=== PATIENT | male | born 2000 | race Caucasian/White ===

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

== ENCOUNTER 2018-02-01 15:39 | Emergency (ER) | payer SELFPAY ==
[~2018-02-01] VITALS: Ht 180.3 cm; Wt 70.0 kg
[2018-02-01 16:01] LABS: IMMATURE GRANULOCYTES 0.1 % (0.0-1.0); MEAN CELL VOLUME 83.9 fL CALC (80.0-100.0); MEAN CORPUSCULAR HGB 29.1 pG CALC (26.0-32.0); MEAN CORPUSCULAR HGB CONC 34.7 g/L CALC (32.0-36.0); NEUT# 4.18 thou/uL (1.82-7.42); RED BLOOD COUNT 5.84 mill/uL (4.70-6.10); RED CELL DISTRI WIDTH 12.3 % (11.5-15.5)
[2018-02-01 16:28] LABS: ALBUMIN 5.6 g/dL (3.2-5.0); BILIRUBIN, TOTAL 0.8 mg/dL (0.0-1.4); BUN 13 mg/dL (8-21); BUN/CREATININE RATIO 12 (12-20 (CALC)); CARBON DIOXIDE 23 mmol/l (22-30); CHLORIDE 102 mmol/l (95-108); GFR > 60 ML/MIN (>=60 (CALC)); GFR FOR AFR.AMER. > 60 ML/MIN (>=60 (CALC)); LIPASE 55 u/l (23-300); SGOT/AST 25 u/l (17-59); SGPT/ALT 25 u/l (21-72); SODIUM 143 mmol/l (137-146); TOTAL PROTEIN 8.4 g/dL (6.3-8.2)
[2018-02-01 16:35] LABS: ALKALINE PHOSPHATASE 86 u/l (38-126); ANION GAP 22 (6-22 (CALC)); ETHYL ALCOHOL 0 mg/dl (0-30); POTASSIUM 3.6 mmol/l (3.5-5.1)
[2018-02-01 17:43] VITALS: BP 154/80
[2018-02-01 17:51] LABS: COCAINE NEGATIVE (NEGATIVE); TETRAHYDROCANNABIONOL POSITIVE (NEGATIVE)
[2018-02-01 17:52] LABS: BARBITURATES NEGATIVE (NEGATIVE); OXCYCODONE NEGATIVE (NEGATIVE); TRICYLIC ANTIDEPRESSANTS NEGATIVE (NEGATIVE)
[2018-02-01 18:51] LABS: METHADONE NEGATIVE (NEGATIVE)
== END 2018-02-01 17:44 | disposition short-term general hospital (02) | DRG 918 ==
LOC: ED 15:39
PROVIDERS: Family Medicine
PROC: 0BH17EZ Insertion of Endotracheal Airway into Trachea, Via Natural or Artificial Opening (ICD-10-PCS; principal; 2018-02-01)
PROC: 02HV33Z Insertion of Infusion Device into Superior Vena Cava, Percutaneous Approach (ICD-10-PCS; 2018-02-01)
PROC: 0T9B70Z Drainage of Bladder with Drainage Device, Via Natural or Artificial Opening (ICD-10-PCS; 2018-02-01)
PROC: 0D9670Z Drainage of Stomach with Drainage Device, Via Natural or Artificial Opening (ICD-10-PCS; 2018-02-01)
DX: T47.0X2A Poisoning by histamine H2-receptor blockers, intentional self-harm, initial encounter (principal); K92.2 Gastrointestinal hemorrhage, unspecified; F32.9 Major depressive disorder, single episode, unspecified; T43.222A Poisoning by selective serotonin reuptake inhibitors, intentional self-harm, initial encounter; T45.4X2A Poisoning by iron and its compounds, intentional self-harm, initial encounter; T43.592A Poisoning by other antipsychotics and neuroleptics, intentional self-harm, initial encounter; R11.10 Vomiting, unspecified; Y92.009 Unspecified place in unspecified non-institutional (private) residence as the place of occurrence of the external cause
CPT/HCPCS: J2354; S0164

== ENCOUNTER 2018-12-16 08:52 | Emergency (ER) | payer SELFPAY ==
[~2018-12-16] VITALS: Ht 180.3 cm; Wt 69.2 kg
[2018-12-16 09:56] LABS: HEMATOCRIT 45.5 % (39.0-50.0); HEMOGLOBIN 15.4 g/dl (14.0-18.0); IMMATURE GRANULOCYTES 0.3 % (0.0-5.0); MEAN CORPUSCULAR HGB 29.1 pG CALC (26.0-32.0); MEAN CORPUSCULAR HGB CONC 33.8 g/L CALC (32.0-36.0); NEUT# 12.85 thou/uL (1.82-7.42); RED BLOOD COUNT 5.29 mill/uL (4.70-6.10); RED CELL DISTRI WIDTH 12.3 % (11.5-15.5)
[2018-12-16 10:13] LABS: ANION GAP 16 (6-22 (CALC)); BUN 18 mg/dL (9-20); BUN/CREATININE RATIO 20 (12-20 (CALC)); CARBON DIOXIDE 26 mmol/l (22-30); CHLORIDE 102 mmol/l (95-108); CREATININE 0.9 mg/dL (0.7-1.3); GFR > 60 ML/MIN (>=60 (CALC)); GFR FOR AFR.AMER. > 60 ML/MIN (>=60 (CALC)); POTASSIUM 4.1 mmol/l (3.5-5.1); SODIUM 141 mmol/l (137-146)
[2018-12-16] MEDS ORDERED: BACTRIM DS1 TAB PO (11:22)
[2018-12-16] MEDS ORDERED: CEPHALEXIN500 M1 PO (11:22)
[2018-12-16 11:34] VITALS: BP 127/77
== END 2018-12-16 11:34 | disposition home or self-care (01) | DRG 603 ==
LOC: ED 08:52
PROVIDERS: Family Medicine
DX: L03.114 Cellulitis of left upper limb (principal); F19.90 Other psychoactive substance use, unspecified, uncomplicated; F32.9 Major depressive disorder, single episode, unspecified; F17.210 Nicotine dependence, cigarettes, uncomplicated

== ENCOUNTER 2020-10-26 07:55 | Emergency (ER) | payer OTHER ==
[~2020-10-26] VITALS: Ht 180.3 cm; Wt 75.0 kg
[~2020-10-26 07:55] MED LIST changes: +CEPHALEXIN500 M1 PO
[2020-10-26 08:33] LABS: HEMATOCRIT 46.2 % (39.0-50.0); IMMATURE GRANULOCYTES 0.4 % (0.0-5.0); MEAN CORPUSCULAR HGB 28.2 pG CALC (26.0-32.0); MEAN CORPUSCULAR HGB CONC 32.5 g/dL CAL (32.0-36.0); NEUT# 2.66 thou/uL (1.82-7.42); RED BLOOD COUNT 5.31 mill/uL (4.70-6.10); RED CELL DISTRI WIDTH 12.1 % (11.5-15.5)
[2020-10-26 08:47] LABS: ALBUMIN 4.5 g/dL (3.2-5.0); ALKALINE PHOSPHATASE 53 u/l (38-126); ANION GAP 15 (6-22 (CALC)); BUN 9 mg/dL (9-20); BUN/CREATININE RATIO 12 (12-20 (CALC)); CARBON DIOXIDE 22 mmol/l (22-30); CHLORIDE 106 mmol/l (95-108); CREATININE 0.8 mg/dL (0.7-1.3); ETHYL ALCOHOL 0 mg/dl (0-30); GFR > 60 ML/MIN (>=60 (CALC)); GFR FOR AFR.AMER. > 60 ML/MIN (>=60 (CALC)); POTASSIUM 4.5 mmol/l (3.5-5.1); SGOT/AST 18 u/l (17-59); SODIUM 139 mmol/l (137-146); TOTAL PROTEIN 7.1 g/dL (6.3-8.2)
[2020-10-26 08:53] LABS: URINE BILIRUBIN - DIPSTICK NEGATIVE (NEGATIVE); URINE COLOR YELLOW; URINE GLUCOSE - DIPSTICK NEGATIVE (NEGATIVE); URINE KETONE NEGATIVE (NEGATIVE); URINE LEUK ESTERASE NEGATIVE (NEGATIVE); URINE NITRITE - DIPSTICK NEGATIVE (Negative); URINE PROTEIN - DIPSTICK TRACE mg/dL (NEG-TRACE); URINE SPECIFIC GRAVITY >=1.030; URINE UROBILINOGEN - DIPSTICK 0.2 E.U./dL (0.2)
[2020-10-26 08:54] LABS: URINE BLOOD DIPSTICK NEGATIVE (NEGATIVE)
[2020-10-26 08:56] LABS: BILIRUBIN, TOTAL 0.4 mg/dL (0.0-1.4)
[2020-10-26 09:17] LABS: TSH, 3RD GENERATION 1.69 uIU/mL (0.47 - 4.68)
[2020-10-26] MEDS ORDERED: DOXYCYCL HYC100 M4 PO (09:26)
[2020-10-26 09:50] VITALS: BP 102/68
== END 2020-10-26 09:50 | disposition home or self-care (01) ==
LOC: ED 07:55
PROVIDERS: Family Medicine
DX: R00.2 Palpitations (principal); F17.210 Nicotine dependence, cigarettes, uncomplicated

== ENCOUNTER 2021-06-10 18:18 | Emergency (ER) | payer OTHER ==
[~2021-06-10] VITALS: Ht 180.3 cm; Wt 72.7 kg
[~2021-06-10 18:18] MED LIST changes: +DOXYCYCL HYC100 M4 PO
[2021-06-10] MEDS ORDERED: VOLTAREN75 MG PO (19:55)
[2021-06-10 20:07] VITALS: BP 130/82
== END 2021-06-10 20:08 | disposition home or self-care (01) ==
LOC: ED 18:18
DX: S43.401A Unspecified sprain of right shoulder joint, initial encounter (principal); F17.210 Nicotine dependence, cigarettes, uncomplicated; W17.89XA Other fall from one level to another, initial encounter

== ENCOUNTER 2021-11-08 16:15 | Emergency (ER) | payer OTHER ==
[~2021-11-08] VITALS: Ht 180.3 cm; Wt 86.0 kg
[~2021-11-08 16:15] MED LIST changes: +VOLTAREN75 MG PO
[2021-11-08 17:13] LABS: URINE BILIRUBIN - DIPSTICK NEGATIVE (NEGATIVE); URINE BLOOD DIPSTICK NEGATIVE (NEGATIVE); URINE COLOR YELLOW; URINE GLUCOSE - DIPSTICK NEGATIVE (NEGATIVE); URINE KETONE 15 mg/dL (NEGATIVE); URINE LEUK ESTERASE NEGATIVE (NEGATIVE); URINE PROTEIN - DIPSTICK 30 mg/dL (NEG-TRACE); URINE SPECIFIC GRAVITY 1.025; URINE UROBILINOGEN - DIPSTICK 0.2 E.U./dL (0.2)
[2021-11-08 17:14] LABS: HEMATOCRIT 48.9 % (39.0-50.0); HEMOGLOBIN 16.9 g/dl (14.0-18.0); IMMATURE GRANULOCYTES 0.3 % (0.0-5.0); MEAN CELL VOLUME 85.9 fL CALC (80.0-100.0); MEAN CORPUSCULAR HGB 29.7 pG CALC (26.0-32.0); MEAN CORPUSCULAR HGB CONC 34.6 g/dL CAL (32.0-36.0); RED BLOOD COUNT 5.69 mill/uL (4.70-6.10); RED CELL DISTRI WIDTH 12.7 % (11.5-15.5)
[2021-11-08 17:22] LABS: URINE NITRITE - DIPSTICK NEGATIVE (Negative)
[2021-11-08 17:23] LABS: URINE RBC 0-2 RBC/hpf (0-5); URINE SQUAMOUS EPITHELIAL CELL RARE EPI/hpf (0-FEW)
[2021-11-08 17:34] LABS: ALBUMIN 5.2 g/dL (3.2-5.0); ANION GAP 16 (6-22 (CALC)); BUN 15 mg/dL (9-20); BUN/CREATININE RATIO 14 (12-20 (CALC)); CARBON DIOXIDE 23 mmol/l (22-30); CHLORIDE 102 mmol/l (95-108); GFR > 60 ML/MIN (>=60 (CALC)); GFR FOR AFR.AMER. > 60 ML/MIN (>=60 (CALC)); POTASSIUM 3.9 mmol/l (3.5-5.1); SGOT/AST 23 u/l (17-59); SODIUM 137 mmol/l (137-146); TOTAL PROTEIN 8.5 g/dL (6.3-8.2)
[2021-11-08 17:37] LABS: ALKALINE PHOSPHATASE 89 u/l (38-126); BILIRUBIN, TOTAL 1.2 mg/dL (0.0-1.4)
[2021-11-08] MEDS ORDERED: ZPAK PO (18:25)
[2021-11-08] MEDS ORDERED: PROAIR HFA108 MCG/AC PO (18:25)
[2021-11-08 18:40] VITALS: BP 99/58
== END 2021-11-08 18:50 | disposition home or self-care (01) ==
LOC: ED 16:15
PROVIDERS: Family Medicine
DX: J06.9 Acute upper respiratory infection, unspecified (principal); F17.210 Nicotine dependence, cigarettes, uncomplicated; Z20.822 Contact with and (suspected) exposure to COVID-19

== ENCOUNTER 2022-03-27 09:19 | Emergency (ER) | payer OTHER ==
[~2022-03-27] VITALS: Ht 180.3 cm; Wt 81.8 kg
[~2022-03-27 09:19] MED LIST changes: +PROAIR HFA108 MCG/AC PO; +ZPAK PO
[2022-03-27 09:39] VITALS: BP 117/82
[2022-03-27 10:00] VITALS: BP 134/72
[2022-03-27] MEDS ORDERED: FLONASE AL50 MCG/ACT (10:27)
[2022-03-27] MEDS ORDERED: ZPAK PO (10:27)
[2022-03-27] MEDS ORDERED: ALL DAY10 MG PO (10:27)
[2022-03-27 10:30] VITALS: BP 117/77
[2022-03-27 10:39] VITALS: BP 117/77
== END 2022-03-27 10:39 | disposition home or self-care (01) ==
LOC: ED 09:19
DX: J06.9 Acute upper respiratory infection, unspecified (principal); J30.9 Allergic rhinitis, unspecified; F17.210 Nicotine dependence, cigarettes, uncomplicated

== ENCOUNTER 2022-03-30 13:14 | Emergency (ER) | payer OTHER ==
[2022-03-30] VITALS (7 sets, daily range): BP systolic 120–133; BP diastolic 69–89
[~2022-03-30] VITALS: Ht 180.3 cm; Wt 77.0 kg
[~2022-03-30 13:14] MED LIST changes: +ALL DAY10 MG PO; +FLONASE AL50 MCG/ACT
[2022-03-30 14:53] LABS: HEMATOCRIT 47.9 % (39.0-50.0); IMMATURE GRANULOCYTES 0.3 % (0.0-5.0); MEAN CELL VOLUME 90.5 fL CALC (80.0-100.0); MEAN CORPUSCULAR HGB 30.2 pG CALC (26.0-32.0); MEAN CORPUSCULAR HGB CONC 33.4 g/dL CAL (32.0-36.0); NEUT# 4.51 thou/uL (1.82-7.42); RED BLOOD COUNT 5.29 mill/uL (4.70-6.10); RED CELL DISTRI WIDTH 12.9 % (11.5-15.5)
[2022-03-30 15:12] LABS: PROTHROMBIN TIME 10.4 SECONDS (9.0-12.5)
[2022-03-30 15:13] LABS: ALBUMIN 4.4 g/dL (3.2-5.0); ALKALINE PHOSPHATASE 74 u/l (38-126); BUN 14 mg/dL (9-20); BUN/CREATININE RATIO 14 (12-20 (CALC)); CHLORIDE 103 mmol/l (95-108); ETHYL ALCOHOL 0 mg/dl (0-30); GFR > 60 ML/MIN (>=60 (CALC)); GFR FOR AFR.AMER. > 60 ML/MIN (>=60 (CALC)); LIPASE 82 u/l (23-300); POTASSIUM 4.1 mmol/l (3.5-5.1); SGOT/AST 27 u/l (17-59); SODIUM 138 mmol/l (137-146); TOTAL PROTEIN 7.1 g/dL (6.3-8.2)
[2022-03-30 15:14] LABS: ANION GAP 11 (6-22 (CALC)); BILIRUBIN, TOTAL 0.5 mg/dL (0.0-1.4); CARBON DIOXIDE 28 mmol/l (22-30)
== END 2022-03-30 17:35 | disposition home or self-care (01) ==
LOC: ED 13:14
PROVIDERS: Nurse Practitioner
DX: K62.5 Hemorrhage of anus and rectum (principal); F17.200 Nicotine dependence, unspecified, uncomplicated
CPT/HCPCS: Q9967; S0164

== ENCOUNTER 2022-04-14 06:55 | Day surgery (SDC) | payer OTHER ==
[2022-04-14 07:50] VITALS: BP 110/74
== END 2022-04-14 08:55 | disposition home or self-care (01) ==
LOC: ENDO 06:55 → ORM 08:45 → ENDO 08:55
PROVIDERS: ATTEND Surgery
DX: K64.8 Other hemorrhoids (principal); K29.50 Unspecified chronic gastritis without bleeding

== ENCOUNTER 2022-05-07 18:25 | Emergency (ER) | payer OTHER ==
[~2022-05-07] VITALS: Ht 182.9 cm; Wt 70.0 kg
[2022-05-07 19:42] LABS: URINE BILIRUBIN - DIPSTICK NEGATIVE (NEGATIVE); URINE BLOOD DIPSTICK NEGATIVE (NEGATIVE); URINE COLOR YELLOW; URINE GLUCOSE - DIPSTICK NEGATIVE (NEGATIVE); URINE KETONE NEGATIVE (NEGATIVE); URINE LEUK ESTERASE NEGATIVE (NEGATIVE); URINE NITRITE - DIPSTICK NEGATIVE (Negative); URINE PH 7.5 (4.5-8.0); URINE PROTEIN - DIPSTICK NEGATIVE (NEG-TRACE); URINE UROBILINOGEN - DIPSTICK 0.2 E.U./dL (0.2)
[2022-05-07 19:44] LABS: HEMATOCRIT 48.1 % (39.0-50.0); HEMOGLOBIN 15.5 g/dl (14.0-18.0); IMMATURE GRANULOCYTES 0.2 % (0.0-5.0); MEAN CORPUSCULAR HGB CONC 32.2 g/dL CAL (32.0-36.0); NEUT# 3.31 thou/uL (1.82-7.42); RED BLOOD COUNT 5.17 mill/uL (4.70-6.10); RED CELL DISTRI WIDTH 12.2 % (11.5-15.5)
[2022-05-07 19:56] LABS: ALBUMIN 4.9 g/dL (3.2-5.0); ALKALINE PHOSPHATASE 54 u/l (38-126); ANION GAP 17 (6-22 (CALC)); BILIRUBIN, TOTAL 0.7 mg/dL (0.0-1.4); BUN 10 mg/dL (9-20); BUN/CREATININE RATIO 10 (12-20 (CALC)); CARBON DIOXIDE 26 mmol/l (22-30); CHLORIDE 103 mmol/l (95-108); ETHYL ALCOHOL 0 mg/dl (0-30); GFR FOR AFR.AMER. > 60 ML/MIN (>=60 (CALC)); GFR OTHER RACES > 60 ML/MIN (>=60 (CALC)); POTASSIUM 4.6 mmol/l (3.5-5.1); SGOT/AST 21 u/l (17-59); SODIUM 141 mmol/l (137-146); TOTAL PROTEIN 7.4 g/dL (6.3-8.2)
[2022-05-07 20:43] VITALS: BP 132/75
== END 2022-05-07 20:49 | disposition home or self-care (01) ==
LOC: ED 18:25
PROVIDERS: Emergency Medicine
DX: F41.9 Anxiety disorder, unspecified (principal)

== ENCOUNTER 2022-06-06 23:25 | Emergency (ER) | payer OTHER ==
[~2022-06-06] VITALS: Ht 182.9 cm; Wt 84.0 kg
[2022-06-07 01:28] VITALS: BP 110/65
== END 2022-06-07 01:30 | disposition home or self-care (01) ==
LOC: ED 23:25
DX: M54.50 Low back pain, unspecified (principal); M62.830 Muscle spasm of back; F17.200 Nicotine dependence, unspecified, uncomplicated

== ENCOUNTER 2022-07-27 15:30 | Emergency (ER) | payer OTHER ==
[~2022-07-27] VITALS: Ht 180.3 cm; Wt 79.5 kg
[2022-07-27 15:36] VITALS: BP 115/78
[2022-07-27 15:45] VITALS: BP 128/76
[2022-07-27 16:10] LABS: HEMOGLOBIN 14.6 g/dl (14.0-18.0); IMMATURE GRANULOCYTES 0.3 % (0.0-5.0); MEAN CORPUSCULAR HGB 29.2 pG CALC (26.0-32.0); MEAN CORPUSCULAR HGB CONC 34.7 g/dL CAL (32.0-36.0); NEUT# 2.52 thou/uL (1.82-7.42)
[2022-07-27 16:17] LABS: HEMATOCRIT 42.1 % (39.0-50.0); MEAN CELL VOLUME 84.2 fL CALC (80.0-100.0)
[2022-07-27 16:33] LABS: ALKALINE PHOSPHATASE 61 u/l (38-126); ANION GAP 17 (6-22 (CALC)); BILIRUBIN, TOTAL 0.6 mg/dL (0.0-1.4); BUN 13 mg/dL (9-20); BUN/CREATININE RATIO 13 (12-20 (CALC)); CARBON DIOXIDE 25 mmol/l (22-30); CHLORIDE 104 mmol/l (95-108); CPK 193 u/l (52-200); GFR FOR AFR.AMER. > 60 ML/MIN (>=60 (CALC)); GFR OTHER RACES > 60 ML/MIN (>=60 (CALC)); MAGNESIUM 2.2 mg/dL (1.6-2.3); POTASSIUM 4.3 mmol/l (3.5-5.1); SGOT/AST 25 u/l (17-59); SODIUM 143 mmol/l (137-146); TOTAL PROTEIN 7.8 g/dL (6.3-8.2)
[2022-07-27] MEDS ORDERED: OMNICEF300 M1 PO (19:02)
[2022-07-27] MEDS ORDERED: TESSALON PERLE100 MG PO (19:02)
[2022-07-27] MEDS ORDERED: VENTOLIN HFA108 MCG PO (19:02)
[2022-07-27] MEDS ORDERED: ZITHROMAX250 MG PO (19:02)
[2022-07-27 19:09] VITALS: BP 128/76
== END 2022-07-27 19:30 | disposition home or self-care (01) ==
LOC: ED 15:30
PROVIDERS: Internal Medicine
DX: J18.9 Pneumonia, unspecified organism (principal); R04.2 Hemoptysis; F17.210 Nicotine dependence, cigarettes, uncomplicated; Z20.822 Contact with and (suspected) exposure to COVID-19
CPT/HCPCS: Q9967

== ENCOUNTER 2022-12-26 04:37 | Emergency (ER) | payer OTHER ==
[2022-12-26] VITALS (11 sets, daily range): BP systolic 105–127; BP diastolic 46–81
[~2022-12-26] VITALS: Ht 180.3 cm; Wt 81.0 kg
[~2022-12-26 04:37] MED LIST changes: +OMNICEF300 M1 PO; +TESSALON PERLE100 MG PO; +VENTOLIN HFA108 MCG PO; +ZITHROMAX250 MG PO
[2022-12-26 05:28] LABS: BASO% 0.2 % (0-3); EOS% 1.1 % (0-8); IMMATURE GRANULOCYTES 0.2 % (0.0-5.0); LYMPH% 5.1 % (15-41); MEAN CELL VOLUME 86.8 fL CALC (80.0-100.0); MEAN CORPUSCULAR HGB 29.9 pG CALC (26.0-32.0); MEAN CORPUSCULAR HGB CONC 34.4 g/dL CAL (32.0-36.0); MONO% 6.1 % (2-13); NEUT# 9.4 thou/uL (1.82-7.42); NEUT% 87.3 % (42-76); RED BLOOD COUNT 5.92 mill/uL (4.70-6.10); RED CELL DISTRI WIDTH 12.1 % (11.5-15.5)
[2022-12-26 05:35] LABS: HEMATOCRIT 51.4 % (39.0-50.0); HEMOGLOBIN 17.7 g/dl (14.0-18.0); URINE BLOOD DIPSTICK NEGATIVE (NEGATIVE); URINE COLOR YELLOW; URINE GLUCOSE - DIPSTICK NEGATIVE (NEGATIVE); URINE KETONE TRACE mg/dL (NEGATIVE); URINE LEUK ESTERASE NEGATIVE (NEGATIVE); URINE PH 8.5 (4.5-8.0); URINE PROTEIN - DIPSTICK TRACE mg/dL (NEG-TRACE); URINE SPECIFIC GRAVITY 1.015; URINE UROBILINOGEN - DIPSTICK 0.2 E.U./dL (0.2)
[2022-12-26 05:37] LABS: URINE BILIRUBIN - DIPSTICK SMALL (NEGATIVE)
[2022-12-26 05:38] LABS: URINE NITRITE - DIPSTICK NEGATIVE (Negative)
[2022-12-26 05:42] LABS: ALBUMIN 5.4 g/dL (3.2-5.0); ALKALINE PHOSPHATASE 72 u/l (38-126); ANION GAP 15 (6-22 (CALC)); BUN 19 mg/dL (9-20); BUN/CREATININE RATIO 19 (12-20 (CALC)); CARBON DIOXIDE 24 mmol/l (22-30); CHLORIDE 103 mmol/l (95-108); GFR FOR AFR.AMER. > 60 ML/MIN (>=60 (CALC)); GFR OTHER RACES > 60 ML/MIN (>=60 (CALC)); LIPASE 124 u/l (23-300); POTASSIUM 4.1 mmol/l (3.5-5.1); SGOT/AST 30 u/l (17-59); SODIUM 138 mmol/l (137-146); TOTAL PROTEIN 8.7 g/dL (6.3-8.2)
[2022-12-26 05:57] LABS: BILIRUBIN, TOTAL 1.4 mg/dL (0.2-1.3)
[2022-12-26] MEDS ORDERED: ZOFRAN4 MG/TAB PO (07:32)
== END 2022-12-26 07:40 | disposition home or self-care (01) ==
LOC: ED 04:37
PROVIDERS: Family Medicine
DX: A08.39 Other viral enteritis (principal); F17.200 Nicotine dependence, unspecified, uncomplicated; Z20.822 Contact with and (suspected) exposure to COVID-19

== ENCOUNTER 2024-01-09 11:22 | Emergency (ER) | payer OTHER ==
[~2024-01-09 11:22] MED LIST changes: +ZOFRAN4 MG/TAB PO
[2024-01-09] MEDS ORDERED: ZPAK PO (19:48)
[2024-01-09] MEDS ORDERED: ZYRTEC10 MG PO (19:48)
== END 2024-01-09 14:00 | disposition home or self-care (01) | DRG 951 ==
LOC: ED 11:22 → LWOBS 14:00
DX: Z53.21 Procedure and treatment not carried out due to patient leaving prior to being seen by health care provider (principal)

== ENCOUNTER 2024-01-09 16:24 | Emergency (ER) | payer OTHER ==
[~2024-01-09] VITALS: Ht 180.3 cm; Wt 83.9 kg
[2024-01-09] MEDS ORDERED: ZYRTEC10 MG PO (19:48)
[2024-01-09] MEDS ORDERED: ZPAK PO (19:48)
[2024-01-09] MEDS ORDERED: AZITHROMYCIN 250 MG/TAB PO ONE (19:50)
[2024-01-09] MEDS ORDERED: DEXTROMETHORPHAN-Guaifenesin 20-200 MG/10 ML UDC PO ONE (19:50)
[2024-01-09 20:00] VITALS: BP 142/80
== END 2024-01-09 20:05 | disposition home or self-care (01) ==
LOC: ED 16:24
DX: J06.9 Acute upper respiratory infection, unspecified (principal); J30.9 Allergic rhinitis, unspecified; F17.200 Nicotine dependence, unspecified, uncomplicated; Z20.822 Contact with and (suspected) exposure to COVID-19

== ENCOUNTER 2024-05-17 17:03 | Emergency (ER) | payer SELFPAY ==
[~2024-05-17] VITALS: Ht 180.3 cm; Wt 84.3 kg
[~2024-05-17 17:03] MED LIST changes: +MOTRIN800 MG PO; +MUCINEX1200 MG PO; +TOBRAMYCIN0.31 OU; +TOBRAMYCIN0.31 TP; +ZYRTEC10 MG PO
[2024-05-17] MEDS ORDERED: Diph, Acellular Pertussis, Tet 0.5 ML/VIAL (Tdap) SDV IM ONE (17:45)
[2024-05-17] MEDS ORDERED: TRAMADOL HYDROC50 M1 PO (17:49)
[2024-05-17] MEDS ORDERED: SILVADENE1 % EX (17:49)
[2024-05-17] MEDS ORDERED: HYDROcodone 7.5 MG/Acetaminophen 325 MG/COMBO PO ONE (17:50)
[2024-05-17] MEDS ORDERED: SILVER SULFADIAZINE 50 GM/TUBE EA TOP ONE (17:50)
[2024-05-17 18:25] VITALS: BP 127/86
== END 2024-05-17 18:25 | disposition home or self-care (01) | DRG 999 ==
LOC: ED 17:03
PROC: 2W2FX4Z Dressing of Left Hand using Bandage (ICD-10-PCS; principal; 2024-05-17)
PROC: 2W29X4Z Dressing of Left Upper Extremity using Bandage (ICD-10-PCS; 2024-05-17)
PROC: 2W2EX4Z Dressing of Right Hand using Bandage (ICD-10-PCS; 2024-05-17)
DX: T20.10XA Burn of first degree of head, face, and neck, unspecified site, initial encounter (principal); T22.192A Burn of first degree of multiple sites of left shoulder and upper limb, except wrist and hand, initial encounter; T23.162A Burn of first degree of back of left hand, initial encounter; F17.210 Nicotine dependence, cigarettes, uncomplicated; T31.10 Burns involving 10-19% of body surface with 0% to 9% third degree burns; X12.XXXA Contact with other hot fluids, initial encounter; T23.161A Burn of first degree of back of right hand, initial encounter

== ENCOUNTER 2024-08-27 05:08 | Emergency (ER) | payer SELFPAY ==
[~2024-08-27] VITALS: Ht 180.3 cm; Wt 83.0 kg
[~2024-08-27 05:08] MED LIST changes: +SILVADENE1 % EX; +TRAMADOL HYDROC50 M1 PO
[2024-08-27] MEDS ORDERED: PENICILLN VK500 MG PO (05:57)
[2024-08-27 06:10] VITALS: BP 123/75
== END 2024-08-27 06:12 | disposition home or self-care (01) | DRG 153 ==
LOC: ED 05:08
DX: J02.0 Streptococcal pharyngitis (principal); F17.210 Nicotine dependence, cigarettes, uncomplicated

== ENCOUNTER 2025-01-07 17:12 | Emergency (ER) | payer OTHER ==
[~2025-01-07] VITALS: Ht 180.3 cm; Wt 88.9 kg
[~2025-01-07 17:12] MED LIST changes: +PENICILLN VK500 MG PO
[2025-01-07] MEDS ORDERED: OSELTAMIVIR PHOSPHATE 75 MG/TAB CAP PO ONE (18:35)
[2025-01-07] MEDS ORDERED: TAM75CAP PO (18:42)
[2025-01-07 18:44] VITALS: BP 122/71
== END 2025-01-07 18:54 | disposition home or self-care (01) | DRG 195 ==
LOC: ED 17:12
DX: J10.1 Influenza due to other identified influenza virus with other respiratory manifestations (principal); F17.200 Nicotine dependence, unspecified, uncomplicated; Z20.822 Contact with and (suspected) exposure to COVID-19